=== PATIENT | female | born 1955 | race Caucasian/White ===

== ENCOUNTER → 2016-09-15 | Day surgery (SDC) | payer OTHER | END | disposition home or self-care (01) | LOC: SDCH 09:54 | DX: K29.50 Unspecified chronic gastritis without bleeding (principal); K57.30 Diverticulosis of large intestine without perforation or abscess without bleeding; K44.9 Diaphragmatic hernia without obstruction or gangrene; R19.5 Other fecal abnormalities; I10 Essential (primary) hypertension; G43.909 Migraine, unspecified, not intractable, without status migrainosus; M19.90 Unspecified osteoarthritis, unspecified site; Z90.49 Acquired absence of other specified parts of digestive tract; Z98.890 Other specified postprocedural states; Z90.710 Acquired absence of both cervix and uterus | CPT/HCPCS: J0360; J2704 ==